=== PATIENT | female | born 1995 | race American Indian/Alaskan Native ===

== ENCOUNTER 2019-12-07 23:14 | Outpatient (CLI) | payer MEDICAID ==
[2019-12-07 23:35] VITALS: BP 123/73
[2019-12-07] MEDS ORDERED: LACTATED RINGERS 1,000 ML IV ONE (23:48)
== END 2019-12-08 00:49 | disposition home or self-care (01) ==
LOC: TRG 23:14 → APU 23:16 → TRG 12-08 00:49
PROVIDERS: ATTEND Obstetrics & Gynecology
DX: O47.03 False labor before 37 completed weeks of gestation, third trimester (principal); Z3A.36 36 weeks gestation of pregnancy
CPT/HCPCS: 59025

== ENCOUNTER 2020-10-09 20:30 | Emergency (ER) | payer MEDICAID ==
[2020-10-09 22:18] LABS: Basophils # (Auto) 0.1 K/mm3 (0.0-0.1); Eosinophils # (Auto) 0.1 K/mm3 (0.0-0.4); Eosinophils % (Auto) 0.8 % (0.0-4.3); Hematocrit 37.7 % (30.3-42.9); Hemoglobin 12.6 gm/dl (10.1-14.3); Lymphocytes # (Auto) 3.3 K/mm3 (1.2-5.4); Lymphocytes % (Auto) 52.2 % (13.4-35.0); Mean Corpuscular HGB Conc 34 % (30-34); Mean Corpuscular Volume 85 fl (79-97); Monocytes # (Auto) 0.3 K/mm3 (0.0-0.8); Monocytes % (Auto) 5.4 % (0.0-7.3); Platelet Count 697 K/mm3 (140-440); Red Blood Count 4.42 M/mm3 (3.65-5.03)
[2020-10-10 00:45] LABS: Alanine Aminotransferase 6 units/L (7-56); Albumin 4.6 g/dL (3.9-5); Blood Urea Nitrogen 5 mg/dL (7-17); Calcium 10.5 mg/dL (8.4-10.2); Hemolysis Index 10
[2020-10-10 00:57] LABS: BUN/Creatinine Ratio 8
--- NOTE | 2020-10-10 02:58 | Ultrasound Report ---
ULTRASOUND OBSTETRIC INDICATION / CLINICAL INFORMATION: , vaginal bleeding. TECHNIQUE: Transabdominal and Transvaginal. COMPARISON: None available. FINDINGS: GESTATIONAL SAC: Small 16 mm intrauterine gestational sac. YOLK SAC: Present EMBRYO/FETUS: Not yet visualized ADNEXA: Right ovary within normal limits. 1.8 cm left ovarian follicular cyst. FREE FLUID: None. ADDITIONAL FINDINGS: None. IMPRESSION: 1. Probable tiny early with intrauterine uterine gestational sac and yolk sac Signer Name: Sammy Tello MD Signed: 10/10/2020 2:54 AM Workstation Name: [id number]
[2020-10-10 03:22] LABS: Bilirubin,Urine NEG (Negative); Blood,Urine MOD (Negative); Color,Urine Yellow (Yellow); Protein,Urine <15 mg/dL mg/dL (Negative)
--- NOTE | 2020-10-10 04:32 | Emergency Department Report ---
ED Female HPI - General Chief complaint: Vaginal Bleeding Stated complaint: VAGINAL BLEEDING Source: patient, EMS Mode of arrival: Stretcher Limitations: No Limitations - History of Present Illness Initial comments: Patient is a A2 25-year-old -Congol[place] female with no past medical history and who is approximately 6 weeks gestation presents to the ED with complaint of acute onset persistent heavy vaginal bleeding intermittently for the last 2 days with pelvic pain. 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 Patient denies dysuria, urine frequency and urgency, vaginal discharge, fever, chills, low back pain, traumatic injury, heavy lifting, headache, dizziness, nausea and vomiting, syncope or diarrhea. MD Complaint: vaginal bleeding, pelvic pain (suprapubic cramps) -: Sudden, days(s) (2) Location: suprapubic, other (vaginal) Radiation: non-radiating Severity: moderate Severity scale (0 -10): 5 Quality: cramping Consistency: intermittent Improves with: none Worsens with: none Are you Now?: Yes (Approximately 6 weeks gestation) Associated Symptoms: denies other symptoms, vaginal bleeding, abdominal pain (Suprapubic). denies: vaginal discharge, nausea/vomiting, fever/chills, headaches, loss of appetite, dysuria, hematuria, rash, seizure, weakness, other - Related Data Sexually active: Yes : 6 Para: 3 A: 2 Previous Rx's Medication Instructions Recorded Last Taken Type Acetaminophen [Tylenol] 500 mg PO Q6HR PRN #30 tablet 10/10/20 Unknown Rx cephALEXin [Keflex] 500 mg PO Q8HR #30 cap 10/10/20 Unknown Rx Allergies Allergy/AdvReac Type Severity Reaction Status Date / Time No Known Allergies Allergy Verified 12/07/19 23:56 ED Review of Systems ROS: Stated complaint: VAGINAL BLEEDING Other details as noted in HPI Constitutional: denies: chills, fever Eyes: denies: eye pain, eye discharge, vision change ENT: denies: ear pain, throat pain Respiratory: denies: cough, shortness of breath, wheezing Cardiovascular: denies: chest pain, palpitations Endocrine: no symptoms reported Gastrointestinal: abdominal pain (Suprapubic pain). denies: nausea, vomiting, diarrhea Genitourinary: abnormal menses (Vaginal bleeding). denies: urgency, dysuria, discharge Musculoskeletal: denies: back pain, joint swelling, arthralgia Skin: denies: rash, lesions Neurological: denies: headache, weakness, paresthesias Psychiatric: denies: anxiety, depression Hematological/Lymphatic: denies: easy bleeding, easy bruising ED Past Medical Hx - Past Medical History Previous Medical History?: No - Surgical History Past Surgical History?: No - Social History Smoking Status: Former Smoker Substance Use Type: None - Medications Home Medications: Home Medications Medication Instructions Recorded Confirmed Last Taken Type Acetaminophen [Tylenol] 500 mg PO Q6HR PRN #30 tablet 10/10/20 Unknown Rx cephALEXin [Keflex] 500 mg PO Q8HR #30 cap 10/10/20 Unknown Rx ED Physical Exam - General Limitations: No Limitations General appearance: alert, in no apparent distress - Head Head exam: Present: atraumatic, normocephalic, normal inspection - Eye Eye exam: Present: normal appearance, PERRL, EOMI Pupils: Present: normal accommodation - ENT ENT exam: Present: normal exam, normal orophraynx, mucous membranes moist, TM's normal bilaterally, normal external ear exam - Neck Neck exam: Present: normal inspection, full ROM - Respiratory Respiratory exam: Present: normal lung sounds bilaterally. Absent: respiratory distress, wheezes, rales, rhonchi, chest wall tenderness, accessory muscle use, decreased breath sounds, prolonged expiratory - Cardiovascular Cardiovascular Exam: Present: regular rate, normal rhythm, normal heart sounds. Absent: systolic murmur, diastolic murmur, rubs, gallop - GI/Abdominal GI/Abdominal exam: Present: soft, tenderness (Palpable mild suprapubic tenderness), normal bowel sounds. Absent: guarding, rebound, hyperactive bowel sounds, hypoactive bowel sounds, mass, bruit - Bi-manual exam: Present: other (Pelvic exam deferred at this time) - Extremities Exam Extremities exam: Present: normal inspection, full ROM, normal capillary refill - Back Exam Back exam: Present: normal inspection, full ROM. Absent: tenderness, CVA tenderness (R), CVA tenderness (L), muscle spasm, paraspinal tenderness, vertebral tenderness - Neurological Exam Neurological exam: Present: alert, oriented X3, CN II-XII intact, normal gait, reflexes normal - Psychiatric Psychiatric exam: Present: normal affect, normal mood - Skin Skin exam: Present: warm, dry, intact, normal color. Absent: rash ED Course Vital Signs 10/09/20 21:21 Temperature 97.9 F Pulse Rate 73 Respiratory 18 Rate Blood Pressure 106/68 O2 Sat by Pulse 97 Oximetry ED Medical Decision Making - Lab Data Result diagrams: 10/09/20 21:42 10/10/20 00:36 - Radiology Data Radiology results: report reviewed, image reviewed [facility] [address] [place] [address] Ultrasound Report Signed Patient: WILTON BLACKBURN MR# : [id number] : 1995 Acct:[id number] Age/Sex: 25 / F ADM Date: 10/09/20 Loc: ED Attending Dr: Ordering Physician: CHRISTINA BACA MD Date of Service: 10/10/20 Procedure(s): US OB transvaginal Accession Number(s): [id number] cc: ED MD KEVEN ULTRASOUND OBSTETRIC INDICATION / CLINICAL INFORMATION: , vaginal bleeding. TECHNIQUE: Transabdominal and Transvaginal. COMPARISON: None available. FINDINGS: GESTATIONAL SAC: Small 16 mm intrauterine gestational sac. YOLK SAC: Present EMBRYO/FETUS: Not yet visualized ADNEXA: Right ovary within normal limits. 1.8 cm left ovarian follicular cyst. FREE FLUID: None. ADDITIONAL FINDINGS: None. IMPRESSION: 1. Probable tiny early with intrauterine uterine gestational sac and yolk sac Signer Name: Sammy Tello MD Signed: 10/10/2020 2:54 AM Workstation Name: [id number] Transcribed By: TL Dictated By: Sammy Tello MD Electronically Authenticated By: Sammy Tello MD Signed Date/Time: 10/10/20253 DD/ 1 TD/TT: [facility] [address] [place] [address] Ultrasound Report Signed Patient: WILTON BLACKBURN MR# : [id number] : 1995 Acct:[id number] Age/Sex: 25 / F ADM Date: 10/09/20 Loc: ED Attending Dr: Ordering Physician: CHRISTINA BACA MD Date of Service: 10/10/20 Procedure(s): US OB <= 14 weeks fetus Accession Number(s): [id number] cc: ED MD KEVEN ULTRASOUND OBSTETRIC INDICATION / CLINICAL INFORMATION: , vaginal bleeding. TECHNIQUE: Transabdominal and Transvaginal. COMPARISON: None available. FINDINGS: GESTATIONAL SAC: Small 16 mm intrauterine gestational sac. YOLK SAC: Present EMBRYO/FETUS: Not yet visualized ADNEXA: Right ovary within normal limits. 1.8 cm left ovarian follicular cyst. FREE FLUID: None. ADDITIONAL FINDINGS: None. IMPRESSION: 1. Probable tiny early with intrauterine uterine gestational sac and yolk sac Signer Name: Sammy Tello MD Signed: 10/10/2020 2:54 AM Workstation Name: [id number] Transcribed By: TL Dictated By: Sammy Tello MD Electronically Authenticated By: Sammy Tello MD Signed Date/Time: 10/10/20253 DD/ 1 TD/TT: - Medical Decision Making This is a A2 25-year-old -Congol[place] female with no past medical history and who is approximately 6 weeks gestation presents to the ED with complaint of acute onset persistent heavy vaginal bleeding intermittently for the last 2 days with pelvic pain. 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 In the ED, patient is alert and oriented x3 and is not in any distress. Patient is hemodynamically stable. Lab test results were reviewed and are all nonactionable except for urinalysis that showed significant urinary tract infection. Transvaginal ultrasound showed probable tiny early with intrauterine uterine gestational sac and yolk sac, no heart tones identified. Based on the lab test results, patient's history as well as imaging reports, patient's may still be too early to characterize even though it is intrauterine. Patient also received RhoGam injection in the ED due to her blood type which was negative rhesus. Patient was therefore discharged from the ED and advised to observe complete pelvic rest with no strenuous physical activities, and to take medications as needed for pain and also to take antibiotics for urinary tract infection. Patient is advised to follow-up with [employer] physician in 5 to 7 days for reevaluation or return to the ED immediately if symptoms get worse. - Differential Diagnosis Threatened miscarriage; UTI; ovarian cyst; subchorionic bleed Critical care attestation.: If time is entered above; I have spent that time in minutes in the direct care of this critically ill patient, excluding procedure time. ED Disposition Clinical Impression: Threatened miscarriage in early , Abdominal pain during in first trimester, Vaginal bleeding in patient after first trimester, Acute urinary tract infection Disposition: HOME / SELF CARE / HOMELESS Is pt being admited?: No Does the pt Need Aspirin: No Condition: Stable Instructions: Threatened Miscarriage, [id number], Abdominal Pain During , [id number], Vaginal Bleeding During , First Trimester, [id number], Urinary Tract Infection, Adult, [id number] Additional Instructions: All lab test results were reviewed and are all nonactionable except for urinary tract infection in urinalysis. Transvaginal ultrasound showed a probable tiny early with intrauterine uterine gestational sac and yolk sac. Therefore observe a complete pelvic rest with no physical or strenuous activities, take medication as needed for pain and also for urinary tract infec tion. Follow-up with your [employer] physician in 5 to 7 days for reevaluation. Return to the ED immediately if symptoms get worse. Prescriptions: Acetaminophen [Tylenol] 500 mg PO Q6HR PRN #30 tablet PRN Reason: Pain , Severe (7-10) cephALEXin [Keflex] 500 mg PO Q8HR #30 cap Referrals: SHWETA AYALA MD [Staff Physician] - 3-5 Days Time of Disposition: 04:41 Print Language: IVORIAN
[2020-10-10 05:45] VITALS: BP 104/62
== END 2020-10-10 05:46 | disposition home or self-care (01) ==
LOC: ED 20:30
DX: O20.0 Threatened abortion (principal); O23.41 Unspecified infection of urinary tract in pregnancy, first trimester; O26.891 Other specified pregnancy related conditions, first trimester; Z3A.01 Less than 8 weeks gestation of pregnancy; Z87.891 Personal history of nicotine dependence
CPT/HCPCS: 36415; 76801; 76817; 80053; 81001; 84702; 85025; 86850; 86900; 86901; 87086; 96372; 99284; J2790; 90471